=== PATIENT | female | born 1975 | race Caucasian/White ===

== ENCOUNTER 2016-09-01 18:05 | Emergency (ER) | payer SELFPAY ==
[~2016-09-01] VITALS: Ht 160 cm; Wt 63.4 kg
[2016-09-01 19:08] LABS: HEMATOCRIT 40.8 % (36.0-46.0); MCH 31.4 PG (29.0-34.0); MCHC 34.1 G/DL (30.0-36.0); MCV 92.1 FL (83-99); MEAN PLAT.VOLUME 8.8 uM^3 (9.5-12.4); PLATELET COUNT 302 K/uL (156-360); RBC DIS.WIDTH-CV 12.6 % (11.8-14.6); RBC DIS.WIDTH-SD 40.9 % (39-53); RED BLOOD COUNT 4.43 M/uL (3.80-5.20); WHITE BLOOD COUNT 6.4 K/uL (4.1-10.2)
[2016-09-01 19:21] LABS: CHLORIDE 108 mEq/L (99-109); POTASSIUM 3.7 mEq/L (3.7-5.4); SODIUM 139 mEq/L (136-147)
[2016-09-01 19:23] LABS: GLUCOSE 92 mg/dL (70-99)
[2016-09-01 19:24] LABS: ANION GAP 10 MEQ/L (2-14)
[2016-09-01 19:25] LABS: TOTAL BILIRUBIN 0.5 mg/dL (0.0-1.0)
[2016-09-01 19:26] LABS: ALKALINE PHOSPHATASE 67 IU/L (3-129)
[2016-09-01 19:27] LABS: GFR ESTIMATE (CALCULATED) > 59 mL/min/
[2016-09-01 19:28] LABS: UREA NITROGEN (BUN) 6 mg/dL (9-23)
[2016-09-01 19:31] LABS: QUANTITATIVE HCG < 4.0 MIU/ML
[2016-09-01 19:48] LABS: ADD MIUA? YES; BILIRUBIN NEGATIVE; BLOOD MODERATE; COLOR YELLOW ((YELLOW)); GLUCOSE (STRIP) NEGATIVE; KETONES NEGATIVE; LEUKOCYTES TRACE; NITRITE NEGATIVE; PROTEIN (STRIP) NEGATIVE; SPECIFIC GRAVITY 1.009 (1.000-1.030); UROBILINOGEN 0.2 MG/DL (0.2-1.0)
[2016-09-01 19:50] LABS: BACTERIA RARE /HPF; EPITHELIAL CELLS 1+ /HPF; MUCUS TRACE /LPF; RED BLOOD CELLS 0-5 /HPF (0-5); UCUL ADDED? NO; WHITE BLOOD CELLS 0-5 /HPF (0-5)
[2016-09-01] MEDS ORDERED: NORCO 5/3251 TABLET PO (23:55)
[2016-09-02 00:08] VITALS: BP 116/75
== END 2016-09-02 00:09 | disposition home or self-care (01) ==
LOC: EME 18:05 → RME 18:05
DX: R10.31 Right lower quadrant pain (principal); F17.200 Nicotine dependence, unspecified, uncomplicated
CPT/HCPCS: 74177; 76856; 80053; 81003; 84702; 85027; 99281; 99285; J2405; J3010; J7030

== ENCOUNTER 2017-01-10 14:11 | Emergency (ER) | payer OTHER ==
[~2017-01-10] VITALS: Ht 160 cm; Wt 66.0 kg
[~2017-01-10 14:11] MED LIST: NORCO 5/3251 TABLET PO
[2017-01-10] MEDS ORDERED: ULTRAM50 MG PO (16:19)
[2017-01-10] MEDS ORDERED: NAPROSYN500 MG PO (16:19)
[2017-01-10] MEDS ORDERED: FLEXERIL10 MG PO (16:19)
[2017-01-10 16:57] VITALS: BP 132/76
== END 2017-01-10 16:58 | disposition home or self-care (01) ==
LOC: EME 14:11
DX: M54.6 Pain in thoracic spine (principal); S29.009A Unspecified injury of muscle and tendon of unspecified wall of thorax, initial encounter; X50.0XXA Overexertion from strenuous movement or load, initial encounter; Y92.002 Bathroom of unspecified non-institutional (private) residence as the place of occurrence of the external cause; Y93.E9 Activity, other interior property and clothing maintenance; Z88.0 Allergy status to penicillin; F17.200 Nicotine dependence, unspecified, uncomplicated
CPT/HCPCS: 72070; 99281; 99284

== ENCOUNTER 2017-04-17 20:13 | Emergency (ER) | payer OTHER ==
[~2017-04-17] VITALS: Ht 160 cm; Wt 66.3 kg
[~2017-04-17 20:13] MED LIST changes: +FLEXERIL10 MG PO; +NAPROSYN500 MG PO; +ULTRAM50 MG PO
[2017-04-17] MEDS ORDERED: NAPROSYN500 MG PO (21:19)
[2017-04-17 21:39] VITALS: BP 148/100
== END 2017-04-17 21:39 | disposition home or self-care (01) ==
LOC: EME 20:13
DX: M77.9 Enthesopathy, unspecified (principal); J45.909 Unspecified asthma, uncomplicated; Z88.0 Allergy status to penicillin; F17.200 Nicotine dependence, unspecified, uncomplicated
CPT/HCPCS: 73130; 99281; 99283

== ENCOUNTER 2017-07-25 19:00 | Emergency (ER) | payer OTHER ==
[~2017-07-25] VITALS: Ht 160 cm; Wt 60.9 kg
[2017-07-25] MEDS ORDERED: MOTRIN800 MG PO (21:04)
[2017-07-25] MEDS ORDERED: NORCO 5/3251 TABLET PO (21:04)
[2017-07-25 21:29] VITALS: BP 122/67
== END 2017-07-25 21:30 | disposition home or self-care (01) ==
LOC: EME 19:00 → EXP 19:00
DX: S92.414A Nondisplaced fracture of proximal phalanx of right great toe, initial encounter for closed fracture (principal); W01.0XXA Fall on same level from slipping, tripping and stumbling without subsequent striking against object, initial encounter; F17.200 Nicotine dependence, unspecified, uncomplicated; Z88.0 Allergy status to penicillin
CPT/HCPCS: 73630; 99281; 99284

== ENCOUNTER 2018-03-12 21:22 | Emergency (ER) | payer OTHER ==
[~2018-03-12] VITALS: Ht 160 cm; Wt 58.6 kg
[~2018-03-12 21:22] MED LIST changes: +MOTRIN800 MG PO
[2018-03-12 21:45] LABS: HEMATOCRIT 34.8 % (36.0-46.0); HEMOGLOBIN 11.7 G/DL (11.9-15.5); MCH 32.1 PG (29.0-34.0); MCHC 33.6 G/DL (30.0-36.0); MCV 95.6 FL (83-99); PLATELET COUNT 221 K/uL (156-360); RBC DIS.WIDTH-CV 12.6 % (11.8-14.6); RBC DIS.WIDTH-SD 44.6 % (39-53); RED BLOOD COUNT 3.64 M/uL (3.80-5.20); WHITE BLOOD COUNT 11.5 K/uL (4.1-10.2)
[2018-03-12 21:57] LABS: ALBUMIN 3.9 g/dL (3.2-4.8); CHLORIDE 108 mEq/L (99-109); POTASSIUM 3.5 mEq/L (3.7-5.4); SODIUM 142 mEq/L (136-147)
[2018-03-12 21:59] LABS: GLUCOSE 84 mg/dL (70-99); TOTAL PROTEIN 6.1 g/dL (6.4-8.3)
[2018-03-12 22:01] LABS: TOTAL BILIRUBIN 0.2 mg/dL (0.0-1.0)
[2018-03-12 22:03] LABS: ALKALINE PHOSPHATASE 54 IU/L (3-129); CREATININE 0.7 mg/dL (0.6-1.3); GFR ESTIMATE (CALCULATED) > 59 mL/min/
[2018-03-12 22:04] LABS: UREA NITROGEN (BUN) 7 mg/dL (9-23)
[2018-03-12 22:05] LABS: AST (GOT) 12 IU/L (2-34)
[2018-03-12 22:06] LABS: ALT (GPT) 9 IU/L (3-49)
[2018-03-12 22:12] LABS: QUANTITATIVE HCG < 4.0 MIU/ML
[2018-03-12 23:15] LABS: APPEARANCE CLEAR ((CLEAR)); BILIRUBIN NEGATIVE; BLOOD NEGATIVE; COLOR STRAW ((YELLOW)); GLUCOSE (STRIP) NEGATIVE; KETONES NEGATIVE; LEUKOCYTES TRACE; NITRITE NEGATIVE; PROTEIN (STRIP) NEGATIVE; SPECIFIC GRAVITY 1.005 (1.000-1.030); UROBILINOGEN 0.2 MG/DL (0.2-1.0)
[2018-03-12 23:25] LABS: BACTERIA RARE /HPF; EPITHELIAL CELLS RARE /HPF; MUCUS NONE SEEN /LPF; RED BLOOD CELLS 0-5 /HPF (0-5); UCUL ADDED? NO; WHITE BLOOD CELLS 0-5 /HPF (0-5)
[2018-03-13 00:04] LABS: D-DIMER ELISA < 150.00 ng/mLDDU (<230)
[2018-03-13] MEDS ORDERED: LEVAQUIN500 MG PO (01:21)
[2018-03-13] MEDS ORDERED: TYLENOL WITH C1 EACH PO (01:21)
[2018-03-13 01:48] VITALS: BP 108/67
== END 2018-03-13 01:49 | disposition home or self-care (01) ==
LOC: EME 21:22
DX: N39.0 Urinary tract infection, site not specified (principal); Z87.440 Personal history of urinary (tract) infections; J45.909 Unspecified asthma, uncomplicated; F17.200 Nicotine dependence, unspecified, uncomplicated; Z88.0 Allergy status to penicillin
CPT/HCPCS: 74176; 80053; 81003; 84702; 85027; 85379; 99281; 99285; J3010; J7030